=== PATIENT | female | born 1995 | race Caucasian/White ===

== ENCOUNTER 2017-01-02 18:17 | Emergency (ER) | payer OTHER ==
[2017-01-02 18:04] LABS: URINE SOURCE CLEAN CATCH
[2017-01-02 18:09] LABS: URINE APPEARANCE CLEAR; URINE BILIRUBIN NEG (NEG); URINE BLOOD TRACE-LYSED (NEG); URINE COLOR YELLOW; URINE GLUCOSE NEG (NORM); URINE KETONE NEG (NEG); URINE LEUKOCYTE ESTERASE NEG (NEG); URINE NITRATE NEG (NEG); URINE PH 5.5 (5-8); URINE PROTEIN NEG (NEG); URINE SPECIFIC GRAVITY 1.025 (1.003-1.035); URINE UROBILINOGEN 0.2 MG/DL (NORM)
[2017-01-02 18:14] LABS: MICRO INDICATED? YES
[2017-01-02 18:15] LABS: CULTURE INDICATED? YES; URINE BACTERIA 1+ (NEG); URINE RBC 0-2 /[HPF] (0-2); URINE SQUAMOUS EPITHELIAL CELL OCCAS /[HPF]; URINE WBC 0-2 /[HPF] (0-5)
[~2017-01-02 18:17] MED LIST: ADDERALLXR; ADDERALLXR PO; AMOXICILLIN500 M1 PO; AMOXICILLIN875 MG PO; BACITRACIN30 GM TOP; BIRTH CONTROL PILL PO; CITALOPRAM HBR10 MG PO; CITRATE OF MAG300 ML PO; CLARITIN10 MG PO; DOCU SOFT100 M1 PO; FLAGYL PO; IBUPROFEN PO; INDOMETHACIN25 MG PO; LITHIUM PO; NO MEDICATIONS; OXCARBAZEPINE300 MG PO; PHENERGAN DM1 ML PO; PREDNISONE PO; ULTRAM PO; ZOFRAN ODT4 MG PO; [UNRECOGNIZED DRUG - OTHER]; [UNRECOGNIZED DRUG - REMARK]
== END 2017-01-02 18:49 | disposition home or self-care (01) ==
LOC: SED 18:17
PROVIDERS: Emergency Medicine
DX: R51 Headache (principal)
CPT/HCPCS: 81003; 84703; 87086; 96361; 96374; 96375; 99284; J1200; J1885; J2765

== ENCOUNTER 2017-02-21 23:03 | Emergency (ER) | payer OTHER ==
[2017-02-21] MEDS ORDERED: ZOFRAN ODT4 M1 PO (23:44)
== END 2017-02-21 23:44 | disposition home or self-care (01) ==
LOC: SED 23:03
DX: B34.9 Viral infection, unspecified (principal)
CPT/HCPCS: 87651; 99283